=== PATIENT | male | born 1970 | race Caucasian/White ===

== ENCOUNTER 2016-11-03 01:48 | Emergency (ER) | payer SELFPAY ==
--- NOTE | ~2016-11-03 | CT4 ---
[facility] A Service of [facility] RADIOLOGY TEXT RESULTS PATIENT: ALEXANDRA CALLOWAY LOCATION: [facility] : 66 UNIT #: [id number] AGE: [address]: Monique Higginbotham APRN SEX: M ORDER DR: [id number] [facility] [address] [place], [place] [address] [id number] E MR#: [id number] #: [id number] NAME: ALEXANDRA CALLOWAY : 1970 SEX: M STUDY DATE/TIME: 11/03/2016 2:45 UNIT: [facility] ROOM: STUDY DESCRIPTION: CT Abd and Pelv Wo Cont Attending Physician: Monique Higginbotham A.P.R.N. Ordering Physician: Monique Higginbotham A.P.R.N. Primary Care Physician: No Primary Care Physician MEDICAL IMAGING REPORT This report is preliminary unless electronic signature is present EXAM CT abdomen and pelvis, noncontrast, kidney stone protocol, 11/03/2016. HISTORY 46-year-old male in the ED complaining of right flank pain and hematuria beginning earlier today. TECHNIQUE CT examination of the abdomen and pelvis without oral or IV contrast using kidney stone protocol. This CT exam was performed with one or more of the following radiation dose reduction techniques: automatic exposure control, adjustment of mA and/or kV according to patient size, and iterative reconstruction. FINDINGS ABDOMEN FINDINGS: There is a 4 mm obstructing calculus in the right distal ureter just above the UVJ causing mild right hydronephrosis. Kidneys, ureters and urinary bladder otherwise negative. No additional renal or urinary tract stone material. Multiple gallstones within a markedly contracted gallbladder. No extrahepatic bile duct dilatation. The exam does shows some mild segmental dilatation of bile ducts within the left hepatic lobe, but not the right lobe. Central hepatic bile duct stricture is possible. No comparison studies here. Correlate for laboratory evidence of biliary obstruction. Pancreas and spleen are normal. Small bowel and colon are normal in caliber and appearance. The appendix is not directly visualized, but there is no indirect CT evidence of acute appendicitis. PELVIS FINDINGS: [facility] A Service of [facility] RADIOLOGY TEXT RESULTS PATIENT: ALEXANDRA CALLOWAY LOCATION: [facility] : 66 UNIT #: [id number] AGE: [address]: Monique Higginbotham APRN SEX: M ORDER DR: Urinary bladder, prostate and rectum are within normal limits. Small fat containing right inguinal hernia. Limited lung base images show no active disease in the lower chest. IMPRESSION 1. Obstructing 4 mm right distal ureter calculus near the UVJ causing mild right hydronephrosis. No additional renal or urinary tract stone material. 2. Multiple gallstones within a contracted gallbladder. No extrahepatic bile duct dilatation. 3. Mild regional bile duct dilatation within the left lobe of the liver, but not the right. Findings could indicate a central hepatic bile duct stricture on the left. Correlate for clinical or laboratory evidence of biliary obstruction. No comparison studies here. 4. Tiny right inguinal hernia containing pelvic fat. Dictated by... Juan Jose Kearney M.D. THIS IS AN ELECTRONICALLY VERIFIED REPORT Juan Jose Kearney M.D. at 11/04/2016 6:05 AM DORA/jona TD: 11/04/2016 00:24 JOB #: [id number] MEDICAL IMAGING REPORT Page 1 of 1 COPY
[2016-11-03 02:30] LABS: BASOPHIL# 0.1 X10e3 (0-0.3); BASOPHIL% 0.8 % (0-2.5); EOSINOPHIL# 0.1 X10e3 (0-0.7); EOSINOPHIL% 0.7 % (0.0-7.0); HEMATOCRIT 42.4 % (38.0-50.0); HEMOGLOBIN 14.4 gm/dL (13.0-16.0); LYMPHOCYTE% 20.6 % (17.0-45.0); MEAN CELL VOLUME 89.8 FL (83-96); MEAN CORPUSCULAR HEMOGLOBIN 30.4 PG (28-34); MEAN CORPUSCULAR HGB CONC 33.8 g/dL (30-36); MEAN PLATELET VOLUME 8.4 FL (6.5-11.5); MONOCYTE# 0.8 X10e3 (0-1.0); MONOCYTE% 7.7 % (3.0-12.0); NEUTROPHIL# 6.9 X10e3 (1.5-7.1); NEUTROPHIL% 70.2 % (40-75); PLATELET COUNT 248 X10e3 (140-420); RED BLOOD COUNT 4.72 X10e (3.90-5.60); RED CELL DISTRIBUTION WIDTH 13.1 % (11.0-15.5); WHITE BLOOD COUNT 9.8 X10e3 (4.0-10.5)
[2016-11-03 02:31] LABS: DIFF IND NO
[2016-11-03 02:50] LABS: URINE SOURCE CLEAN CATCH
[2016-11-03 02:59] LABS: ALBUMIN SERUM 4.7 g/dL (3.5-5.0); BILIRUBIN, DIRECT 0.2 mg/dL (0.0-0.2); BILIRUBIN,INDIRECT 1.2 mg/dL (0.0-0.9); BILIRUBIN,TOTAL 1.4 mg/dL (0.2-2.0); BUN/CREATININE RATIO 11.42; CALCIUM SERUM 9.2 mg/dL (8.4-10.2); CREATININE SERUM 1.4 mg/dL (0.6-1.4); POTASSIUM 3.2 mmol/L (3.5-5.1); PROTEIN TOTAL SERUM 7.8 g/dL (6.0-8.3)
[2016-11-03 03:08] LABS: URINE PROTEIN 3+ (NEG)
[2016-11-03 03:17] LABS: URINE APPEARANCE CLOUDY; URINE COLOR RED; URINE GLUCOSE NORM (NEG); URINE KETONE 40 (NEG); URINE LEUKOCYTE ESTERASE 2+ (NEG); URINE NITRATE POS (NEG); URINE SPECIFIC GRAVITY 1.032 (1.003-1.035)
[2016-11-03 03:18] LABS: CULTURE INDICATED? YES; URBCS1 AUWI 100-200 /[HPF] (0-2); URINE BACTERIA AUWI 2+ (NEGATIVE); URINE BILIRUBIN POS (NEG); URINE BLOOD 3+ (NEG); URINE UROBILINOGEN 0.2 MG/DL (NEG); UWBCS1 AUWI 50-100 (0-5)
== END 2016-11-03 04:53 | disposition home or self-care (01) ==
LOC: CED 01:48
PROVIDERS: Nurse Practitioner
DX: N13.2 Hydronephrosis with renal and ureteral calculous obstruction (principal)
CPT/HCPCS: 36415; 74176; 80048; 80076; 81003; 83690; 85025; 87086; 96374; 96375; 99284; J1885; J2270; J2405; J2550